=== PATIENT | female | born 2000 | race Caucasian/White ===

== ENCOUNTER 2021-03-05 23:16 | Emergency (ER) | payer MEDICAID ==
[~2021-03-05] VITALS: Ht 160 cm; Wt 104.5 kg
[2021-03-06] MEDS ORDERED: acetaminophen 325mg tablet PO ONE (00:15)
[2021-03-06] MEDS ORDERED: ondansetron 4mg rapidly disintigrating tab PO ONE (01:15)
[2021-03-06] MEDS ORDERED: dexamethasone 4mg tablet PO ONE (01:30)
[2021-03-06] MEDS ORDERED: AZIT-63 PO (01:40)
[2021-03-06] MEDS ORDERED: azithromycin 250mg tablet PO ONE (01:40)
[2021-03-06] MEDS ORDERED: ONDA4TAB6 PO (01:50)
[2021-03-06 02:32] VITALS: BP 111/75
[2021-03-07] MEDS ORDERED: PANT40TA54 PO (10:16)
[2021-03-07] MEDS ORDERED: LEVO750T46 PO (10:16)
[2021-03-07] MEDS ORDERED: DEXA6TAB PO (10:16)
[2021-03-07] MEDS ORDERED: BENZ-16 PO (10:16)
[2021-03-07] MEDS ORDERED: ALBU8.5H17 INH (10:16)
== END 2021-03-06 02:43 | disposition home or self-care (01) ==
LOC: ER 23:18
DX: U07.1 COVID-19 (principal); J18.9 Pneumonia, unspecified organism; R42 Dizziness and giddiness; R11.2 Nausea with vomiting, unspecified; Z79.2 Long term (current) use of antibiotics; Z79.899 Other long term (current) drug therapy
CPT/HCPCS: 71045; 87635; 99284; C9803

== ENCOUNTER 2021-03-07 00:16 | Emergency (ER) | payer MEDICAID ==
[~2021-03-07] VITALS: Ht 160 cm; Wt 106.8 kg
[~2021-03-07 00:16] MED LIST: AZIT-63 PO; ONDA4TAB6 PO
[2021-03-07] MEDS ORDERED: ibuprofen 200mg tablet PO ONE (00:40)
[2021-03-07] MEDS ORDERED: ibuprofen tablet 400 MG TABLET PO ONE (00:40)
[2021-03-07 01:16] LABS: URINE HCG NEGATIVE (NEG)
[2021-03-07 01:21] LABS: CLARITY,URINE SLIGHTLY CLOUDY (Clear); COLOR,URINE YELLOW (Yellow); GLUCOSE, URINE NEGATIVE (Neg); KETONES,URINE NEGATIVE (Neg); LEUKOCYTE ESTERASE ,URINE NEGATIVE (Neg); NITRITES, URINE NEGATIVE (Neg); OCCULT BLOOD,URINE TRACE-INTACT (Neg); PH,URINE 5.5 (4.8-8.0); PROTEIN,URINE 30 mg/dl (Neg); UROBILINOGEN,URINE 0.2 E.U/dL (0.2-1.0)
[2021-03-07 01:51] LABS: UA COLLECTION TYPE CLN CATCH MIDSTREAM
[2021-03-07 01:54] LABS: BACTERIA,URINE NONE SEEN /HPF (Neg); SQUAMOUS EPITHELIAL CELL,UR FEW /LPF (FEW); WBC,URINE 0-4 /HPF (0-4)
[2021-03-07] MEDS ORDERED: dexamethasone 4mg tablet PO ONE ×2 (02:55→04:00)
[2021-03-07] MEDS ORDERED: normal saline 1000ML IV soln IV ONE (02:55)
[2021-03-07 03:35] LABS: BASOPHILS % (AUTO) 0.2 % (0-1); EOSINOPHILS % (AUTO) 0 % (0-6); HEMATOCRIT 39.4 % (35.0-45.0); HEMOGLOBIN 13.1 g/dl (12.0-16.0); LYMPHOCYTES % (AUTO) 9.7 % (21-51); MEAN CORPUSCULAR HGB CONC 33.1 g/dL (33.0-36.5); MEAN CORPUSCULAR VOLUME 81.4 FL (78-98); MEAN PLATELET VOLUME 7.3 FL (7.4-10.4); MONOCYTES # (AUTO) 0.7 X10'3 (0-0.9); NEUTROPHILS # (AUTO) 8.5 X10'3 (1.8-7.7); NEUTROPHILS % (AUTO) 83.1 % (42-75); PLATELET COUNT 407 X10'3 (140-440); RED BLOOD COUNT 4.84 X10'6 (4.20-5.60); RED CELL DISTRIBUTION WIDTH 15.2 % (11.5-14.5); WHITE BLOOD COUNT 10.2 X10'3 (4.5-11.0)
[2021-03-07 03:48] LABS: ALANINE AMINOTRANSFERASE 33 U/L (12-78); ALBUMIN 3.9 G/DL (3.4-5.0); ALBUMIN/GLOBULIN RATIO 0.9 (1.1-1.5); ALKALINE PHOSPHATASE 74 IU/L (46-116); ANION GAP 12 (8-16); ASPARTATE AMINO TRANSFERASE 17 U/L (10-37); BILIRUBIN,TOTAL 0.2 MG/DL (0.1-1.0); BLOOD UREA NITROGEN 15 MG/DL (7-18); BUN/CREATININE RATIO 16.3 (6.6-38.0); C-REACTIVE PROTEIN 4.53 MG/DL (0.0-0.5); CALCIUM 8.6 MG/DL (8.5-10.1); CHLORIDE 100 MMOL/L (99-107); CREATININE 0.92 MG/DL (0.40-0.90); GLUCOSE 116 MG/DL (70-104); POTASSIUM 3.6 MMOL/L (3.5-5.1); SODIUM 136 MMOL/L (135-145); TOTAL CARBON DIOXIDE 23.9 MMOL/L (24-32); TOTAL PROTEIN 8.2 G/DL (6.4-8.2); eGFR 76 ML/MIN
[2021-03-07] MEDS ORDERED: iohexol 350MG/ML 100ml bottle IV ONE (03:58)
[2021-03-07] MEDS ORDERED: CefTRIAXone/D5W-Rocephin 1gm 50 ML IV ONE (04:25)
[2021-03-07] MEDS ORDERED: diphenhydrAMINE 25mg capsule PO PRN (04:40)
[2021-03-07] MEDS ORDERED: HYDROmorphone inj. 0.5 MG/0.5 ML DISP.SYRIN IV PRN (04:40)
[2021-03-07] MEDS ORDERED: HYDROcodone/acetaminophen 5mg/325mg tablet PO PRN (04:40)
[2021-03-07] MEDS ORDERED: bisacodyl 10mg suppository rectal RC PRN (04:40)
[2021-03-07] MEDS ORDERED: acetaminophen 325mg tablet PO PRN ×2 (04:40)
[2021-03-07] MEDS ORDERED: diphenhydrAMINE 50 mg/ml inj IV PRN (04:40)
[2021-03-07] MEDS ORDERED: magnesium hydroxide 30ml (MOM) UD suspension PO PRN (04:40)
[2021-03-07] MEDS ORDERED: ondansetron 4mg rapidly disintigrating tab PO PRN (04:40)
[2021-03-07] MEDS ORDERED: ondansetron/PF 4mg/2ml inj IV PRN (04:40)
[2021-03-07] MEDS ORDERED: mag hydrox/Alum hydrox/simeth 30ml oral suspension PO PRN (04:40)
[2021-03-07] MEDS ORDERED: acetaminophen 650mg rectal suppository RC PRN (04:40)
[2021-03-07] MEDS ORDERED: HYDROcodone/acetaminophen 10/325mg tab PO PRN (04:40)
[2021-03-07] MEDS ORDERED: morphine 2 MG/ML inj. syringe IV PRN ×2 (04:40)
[2021-03-07] MEDS ORDERED: ipratropium/albuterol 3ml nebule NEB PRN (04:40)
[2021-03-07] MEDS ORDERED: normal saline 1000ml 1,000 ML IV SCH (04:40)
[2021-03-07 05:04] LABS: D-DIMER 0.35 MG/L FEU (0-0.50); PARTIAL THROMBOPLASTIN TIME 30 SECONDS (22-32)
[2021-03-07 05:08] LABS: HEMOGLOBIN A1C 6.2 % (4.5-6.2)
[2021-03-07 05:14] LABS: PHOSPHORUS 2.8 MG/DL (2.3-4.5)
[2021-03-07] MEDS ORDERED: ALBUTEROL INHALER 1 PUFF/90 MCG INHALER IH PRN (06:00)
[2021-03-07] MEDS ORDERED: pantoprazole 40mg Tablet.DR PO SCH (07:30)
[2021-03-07] MEDS ORDERED: dexamethasone 4mg/ml inj IV SCH (08:00)
[2021-03-07] MEDS ORDERED: dexamethasone inj 6 MG in normal saline 50ml IV soln 50 ML IV SCH (08:00)
[2021-03-07] MEDS ORDERED: docusate sod 100mg capsule PO SCH (08:00)
[2021-03-07] MEDS ORDERED: enoxaparin 40mg/0.4ml syringe SUBCUT SCH (08:00)
[2021-03-07] MEDS ORDERED: DEXA6TAB PO (10:16)
[2021-03-07] MEDS ORDERED: PANT40TA54 PO (10:16)
[2021-03-07] MEDS ORDERED: LEVO750T46 PO (10:16)
[2021-03-07] MEDS ORDERED: BENZ-16 PO (10:16)
[2021-03-07] MEDS ORDERED: ALBU8.5H17 INH (10:16)
--- NOTE | 2021-03-07 10:50 | NUR ---
DR. MARTINEZ TO [facility]. [facility] TO [facility] PT HOME. PT MEDICATIONS CALLED INTO PHARMACY IN [place] PER PT REQUEST. IV DCD. ALL BELONGINGS WITH PT.
[2021-03-07 11:22] VITALS: BP 117/54
[2021-03-07] MEDS ORDERED: temazepam 15mg capsule PO PRN (21:00)
[2021-03-08] MEDS ORDERED: CefTRIAXone/D5W-Rocephin 1gm 50 ML IV SCH (04:00)
== END 2021-03-07 13:39 | disposition home or self-care (01) ==
LOC: ER 00:17 → UNDOADMIN 04:39 → ED HOLD 04:39 → UNDOADMIN 05:54 → ED HOLD 05:54 → CANBEDREQ 08:18 → UNDODISIN 11:15 → ER 13:39
DX: J12.82 Pneumonia due to coronavirus disease 2019 (principal); U07.1 COVID-19; E66.01 Morbid (severe) obesity due to excess calories; I10 Essential (primary) hypertension; E86.0 Dehydration
CPT/HCPCS: 36415; 71045; 71275; 80053; 81001; 81025; 83036; 83605; 83735; 83880; 84100; 84145; 85025; 85379; 85610; 85730; 86140; 87040; 94640; 96365; 96366; 96372; 96375; 99285; J0696; J1100; J7030; Q9967; G0378; J1650

== ENCOUNTER 2021-03-09 01:00 | Emergency (ER) | payer MEDICAID ==
[~2021-03-09] VITALS: Ht 160 cm; Wt 106.8 kg
[~2021-03-09 01:00] MED LIST changes: +ALBU8.5H17 INH; -AZIT-63 PO; +BENZ-16 PO; +DEXA6TAB PO; +LEVO750T46 PO; -ONDA4TAB6 PO; +PANT40TA54 PO
[2021-03-09] MEDS ORDERED: ondansetron/PF 4mg/2ml inj IV STA (01:08)
[2021-03-09] MEDS ORDERED: normal saline 1000ML IV soln IVB ONE (01:10)
[2021-03-09 01:54] LABS: BASOPHILS % (AUTO) 0.2 % (0-1); EOSINOPHILS % (AUTO) 0 % (0-6); HEMATOCRIT 38.7 % (35.0-45.0); HEMOGLOBIN 13.1 g/dl (12.0-16.0); LYMPHOCYTES # (AUTO) 1.6 X10'3 (1.1-4.8); LYMPHOCYTES % (AUTO) 20.2 % (21-51); MEAN CORPUSCULAR HGB CONC 33.9 g/dL (33.0-36.5); MEAN CORPUSCULAR VOLUME 79.6 FL (78-98); MEAN PLATELET VOLUME 7.3 FL (7.4-10.4); MONOCYTES # (AUTO) 0.4 X10'3 (0-0.9); MONOCYTES % (AUTO) 5.6 % (2-12); NEUTROPHILS # (AUTO) 5.7 X10'3 (1.8-7.7); PLATELET COUNT 397 X10'3 (140-440); RED BLOOD COUNT 4.86 X10'6 (4.20-5.60); RED CELL DISTRIBUTION WIDTH 15.2 % (11.5-14.5); WHITE BLOOD COUNT 7.8 X10'3 (4.5-11.0)
[2021-03-09 01:58] LABS: ALANINE AMINOTRANSFERASE 24 U/L (12-78); ALBUMIN 3.5 G/DL (3.4-5.0); ALBUMIN/GLOBULIN RATIO 0.8 (1.1-1.5); ALKALINE PHOSPHATASE 69 IU/L (46-116); ANION GAP 10 (8-16); ASPARTATE AMINO TRANSFERASE 17 U/L (10-37); BILIRUBIN,TOTAL 0.2 MG/DL (0.1-1.0); BLOOD UREA NITROGEN 7 MG/DL (7-18); BUN/CREATININE RATIO 8.3 (6.6-38.0); CALCIUM 8.3 MG/DL (8.5-10.1); CHLORIDE 102 MMOL/L (99-107); CREATININE 0.84 MG/DL (0.40-0.90); GLUCOSE 105 MG/DL (70-104); POTASSIUM 3.5 MMOL/L (3.5-5.1); SODIUM 136 MMOL/L (135-145); TOTAL CARBON DIOXIDE 23.6 MMOL/L (24-32); eGFR 85 ML/MIN
--- NOTE | 2021-03-09 03:41 | NUR ---
PT USED [facility] AND GAVE URINE SAMPLE. AMBULATORY AND IN NO DISTRESS.
[2021-03-09 04:47] LABS: CLARITY,URINE CLEAR (Clear); COLOR,URINE YELLOW (Yellow); GLUCOSE, URINE NEGATIVE (Neg); KETONES,URINE NEGATIVE (Neg); LEUKOCYTE ESTERASE ,URINE NEGATIVE (Neg); NITRITES, URINE NEGATIVE (Neg); OCCULT BLOOD,URINE NEGATIVE (Neg); PH,URINE 6.5 (4.8-8.0); PROTEIN,URINE NEGATIVE (Neg); UROBILINOGEN,URINE 0.2 E.U/dL (0.2-1.0)
[2021-03-09 04:51] LABS: UA COLLECTION TYPE CLN CATCH MIDSTREAM
[2021-03-09 05:37] VITALS: BP 146/94
== END 2021-03-09 08:04 | disposition home or self-care (01) ==
LOC: ER 01:00
DX: U07.1 COVID-19 (principal); R05 Cough; R50.9 Fever, unspecified; Z79.2 Long term (current) use of antibiotics; Z79.899 Other long term (current) drug therapy
CPT/HCPCS: 36415; 71045; 80053; 81003; 83605; 84145; 85025; 87040; 96374; 99284; J2405; J7030